=== PATIENT | male | born 1970 | race Hispanic/Latino ===

== ENCOUNTER 2016-04-19 22:47 | Emergency (ER) | payer OTHER ==
[~2016-04-19] VITALS: Ht 165.1 cm; Wt 74.8 kg
--- NOTE | 2016-04-20 00:43 | ED NECK/BACK PAIN COMPLAINT ---
History of Present Illness General Chief Complaint: Neck/Upper Back Pain/Injury Stated Complaint: "HURT BACK AT WORK" PER PT Source: patient Exam Limitations: no limitations Allergies Coded Allergies: No Known Allergies (04/19/16) Triage Note: PT TO ED FOR LOWER MIDDLE BACK PAIN AFTER LIFTING A HEAVY PALLET AT WORK. DENIES NUMBNESS OR TINGLING, DENIES LOSS OF B/B. Triage Nurses Notes Reviewed? yes HPI: This patient is a 45-year-old male who presents to the emergency department today for evaluation of lower back pain. Patient reported that he was at work today and at approximately 10:00 o'clock he was lifting a pallet and felt a pinching pain in his back which made him feel like he was unable to move. The patient reported that with movement the pain is up to a 10 out of 10 and is nonradiating. The pain has been constant since onset. He reported that it is located in the center of his lower back. He denied any radiation of the pain into his extremities. He denied any numbness or tingling. He denied any bowel or bladder incontinence. No saddle paresthesia. The patient denied any chest pain, difficulty breathing, abdominal pain. (HOANG WEN,MAXIMINO) Vital Signs & Intake/Output Vital Signs & Intake/Output Vital Signs Date Time Temp Pulse Resp B/P Pulse O2 O2 Flow FiO2 Ox Delivery Rate 04/20 0103 98.2 82 16 106/63 100 Room Air 04/19 2255 98.1 82 16 116/80 100 Room Air ED Intake and Output 04/20 0000 04/19 1200 Intake Total Output Total Balance Patient 165 lb Weight Reconcile Medications Cyclobenzaprine HCl 5 MG TABLET 1 TAB PO TIDPRN PRN MUSCLE SPASMS Naproxen (Naprosyn) 500 MG TABLET 1 TAB PO BID PRN INFLAMMATION Tramadol HCl 50 MG TABLET 1 TAB PO BIDP PRN PAIN (FELICE GAUTHIER,LORETA Loo) Past History Travel History Traveled to [place] past 21 day No Medical History Any Pertinent Medical History? see below for history Neurological: NONE EENT: NONE Cardiovascular: NONE Respiratory: NONE Gastrointestinal: NONE Hepatic: NONE Renal: NONE Musculoskeletal: NONE Psychiatric: NONE Endocrine: NONE Blood Disorders: NONE Cancer(s): NONE Surgical History Surgical History: non-contributory Psychosocial History What is your primary language Somali Tobacco Use: Refused to answer ETOH Use: occasional use Illicit Drug Use: denies illicit drug use Family History Hx Contributory? No (MAXIMINO BOLTON PA-C) Review of Systems Review of Systems Constitutional: Reports: no symptoms. Eyes: Reports: no symptoms. Ears, Nose, Throat, Mouth: Reports: no symptoms. Respiratory: Reports: no symptoms. Cardiovascular: Reports: no symptoms. Gastrointestinal/Abdominal: Reports: no symptoms. Musculoskeletal: Reports: see HPI. Skin: Reports: no symptoms. Neurological/Psychological: Reports: no symptoms. All Other Systems: Reviewed and Negative (MAXIMINO OBLTON PA-C) Physical Exam Physical Exam Neck: normal inspection, supple, full range of motion, normal alignment Comments: Well-developed well-nourished no apparent distress. HEENT: Head normocephalic, moist mucous membranes Neck: Supple, no midline tenderness Back: Antalgic gait. Negative straight leg raise bilaterally. Positive lumbar spine midline tenderness. Bilateral lumbar paraspinal musculature tenderness Respiratory: No respiratory distress. No respiratory distress Extremities: No edema, full range of motion Neuro: Alert and oriented x3 Psych: Mood affect normal, normal memory normal judgment. Skin: Warm and dry, no rash on exposed skin (MAXIMINO BOLTON PA-C) Progress Differential Diagnosis: AAA, aortic dissection, C spine injury, cauda equina syn , herniated disc, myofascial strain, pyelo/UTI, sciatica, spinal cord inj, thoracic outlet syn, T/L spine injury, ureterolithiasis Plan of Care: Current Medications Sig/Chidi Start time Last Medication Dose Stop Time Status Admin Cyclobenzaprine HCl 10 MG ONCE ONE 04/20 44 UNVr (Flexeril 10MG Tab) 04/20 45 Naproxen 500 MG ONCE ONE 04/20 44 UNVr (Naprosyn) 04/20 45 Tramadol HCl 50 MG ONCE ONE 04/20 44 UNVr (Ultram) 04/20 45 Departure Departure Disposition: HOME OR SELF CARE Condition: Stable Clinical Impression Primary Impression: Muscle strain Referrals: PATIENT HAS NO PRIMARY CARE DR (PCP/Family) Additional Instructions: Please take Flexeril as prescribed for muscle relaxation. Take naproxen as prescribed for pain and inflammation. Take tramadol as prescribed for pain. Please rest and avoid any strenuous activity or heavy lifting. You may apply ice or heat to the affected areas as needed. Gentle stretching. Please call to make an appointment with the orthopedic physician is information has been provided to you in this packet. Return to the emergency department for any worsening symptoms or concerns. Departure Forms: Customer Survey General Discharge Information Prescriptions: Current Visit Scripts Cyclobenzaprine HCl 1 TAB PO TIDPRN PRN MUSCLE SPASMS #15 TAB Naproxen (Naprosyn) 1 TAB PO BID PRN INFLAMMATION #20 TAB Tramadol HCl 1 TAB PO BIDP PRN PAIN #8 TAB (MAXIMINO BOLTON PA-C) PA/DIANETICIST Co-Sign Statement Statement: ED Attending supervision documentation- [] I saw and evaluated the patient. I have also reviewed all the pertinent lab results and diagnostic results. I agree with the findings and the plan of care as documented in the PA's/DIANETICIST's documentation. [x] I have reviewed the ED Record and agree with the PA's/DIANETICIST's documentation. [] Additions or exceptions (if any) to the PAs/DIANETICIST's note and plan are summarized below: [] (FELICE GAUTHIER,LORETA Loo)
[2016-04-20] MEDS ORDERED: NAPROSYN500 M1 PO (00:46)
[2016-04-20] MEDS ORDERED: TRAMADOL HCL50 M1 PO (00:46)
[2016-04-20] MEDS ORDERED: CYCLOBENZAPRINE5 M2 PO (00:46)
[2016-04-20 01:03] VITALS: BP 106/63
== END 2016-04-20 01:03 ==
LOC: ERH 22:47
DX: S39.012A Strain of muscle, fascia and tendon of lower back, initial encounter (principal); X58.XXXA Exposure to other specified factors, initial encounter